=== PATIENT | female | born 1995 | race Caucasian/White ===

== ENCOUNTER 2016-12-01 12:47 | Emergency (ER) | payer OTHER ==
[~2016-12-01] VITALS: Ht 167.6 cm; Wt 65.2 kg
[2016-12-01 12:54] VITALS: Ht 167.6 cm; Wt 65.2 kg
[2016-12-01] MEDS ORDERED: SODIUM CHLORIDE 0.9% 1000ML 1,000 ML IV ONE (13:14)
[2016-12-01] MEDS ORDERED: SODIUM CHLORIDE 0.9% 1000ML 1,000 ML IV STA (13:14)
--- NOTE | 2016-12-01 13:16 | EMERGENCY ROOM VISIT NOTE ---
History Report prepared by Selene: Ashleigh Holly Under the Supervision of: Dr. Maxwell Cline M.D. First contact with patient: 13:00 Chief Complaint: ABDOMINAL PAIN Stated Complaint: ABD PAIN History of Present Illness The patient is a 21 year old female who presents to the Emergency Room with complaints of persistent lower abdominal pain that began several days ago. She currently rates her discomfort as a 4/10 in severity. The patient states that she noticed the pain in the left lower abdomen, but notes that it has radiated. She states that sitting in certain positions worsens his pain. The patient states that Advil has alleviated her pain slightly. She states that her pain today feels similar to gas pain, but states that it has been persistent. The patient denies any chance of and states that her last normal menstrual period was November 24. She denies any vaginal bleeding or discharge. The patient denies any active medical problems. She denies any recent travel or change in diet. The patient states that she went to Urgent Care today and was sent here for further evaluation. She denies any headache or urinary symptoms. Source of History: patient, friend Onset: several days ago Position: abdomen (lower) Symptom Intensity: 4/10 Timing: other (persistent) Modifying Factors (Worsening): other (sitting in certain positions) Modifying Factors (Relieving): other (Advil) Associated Symptoms: No headache, No urinary symptoms Review of Systems See HPI for pertinent positives & negatives. A total of 10 systems reviewed and were otherwise negative. Past Medical & Surgical Medical Problems: (1) No active medical problems Old medical records were reviewed. Nurse's notes were reviewed and I agree with. Family History No pertinent family history stated. Social History Smoking Status: Never Smoker Drug Use: none Marital Status: in relationship Occupation Status: [employer] student Current/Historical Medications No Active Prescriptions or Reported Meds Allergies Coded Allergies: Sulfa Antibiotics (Verified Allergy, Unknown, unknown, 04/27/14) Physical Exam Vital Signs Date Time Temp Pulse Resp B/P (MAP) Pulse Ox O2 Delivery O2 Flow Rate FiO2 12/01/16 15:46 36.7 66 15 117/78 97 12/01/16 15:45 66 15 117/78 97 Room Air 12/01/16 14:59 61 15 118/83 97 Room Air 12/01/16 12:54 36.7 68 15 112/76 97 Room Air Physical Exam General: Well developed well nourished, non-ill appearing slender young female, in no acute distress, breathing comfortably on room air. Normal speech HEENT: Normal cephalic atraumatic. Pupils are equal round and reactive to light. Sclera anicteric. Extraocular movements are intact. Oropharynx is pink with moist mucous membranes. No swelling of the mouth lips or tongue. Neck: Supple with a midline trachea. No meningeal signs or stiffness, no JVD or bruits. No Stridor. Chest: Clear to auscultation bilaterally. No wheezes or rhonchi. No increased work of breathing. Heart: regular rate and rhythm. Abdomen: Mildly diffusely tender, mostly in lower abdomen, in left greater than right. Worsens with movement. Soft, nondistended without rebound guarding or rigidity. Extremities: No cyanosis clubbing or edema. No calf tenderness or assymetry Spine/Back. Non tender to palpation. No CVA tenderness Skin: Good turgor without rashes. Neurologic exam: Cranial nerves two through 12 are intact. Motor and sensation are intact and symmetrical throughout. Medical Decision & Procedures ER Provider Diagnostic Interpretation: Radiology results as stated below per my review and radiologist interpretation: PELVIC ULTRASOUND, TRANSABDOMINAL HISTORY: lower abd pain L>R COMPARISON: None. FINDINGS: Uterus: Unremarkable. Endometrial stripe: 8 mm in thickness. Right ovary: Normal in size and demonstrates normal color flow. Left ovary: There is a 4.3 cm complex cyst with internal septations within the left ovary. This likely represents a hemorrhagic cyst. Normal color flow within the left ovary. Miscellaneous:Trace pelvic free fluid. IMPRESSION: 1. A 4.3 cm complex cyst within the left ovary which likely represents a hemorrhagic cyst. Follow-up pelvic ultrasound in 6-8 weeks can be performed to ensure resolution. 2. Normal uterus and right ovary. Electronically signed by: Ramiro Cox M.D. 12/01/2016 2:55 PM Dictated Date/Time: 12/01/2016 2:53 PM APPENDIX ULTRASOUND HISTORY: Lower abdominal pain. COMPARISON: None. FINDINGS: Transabdominal scanning of the right lower quadrant was performed. The appendix was not identified. There are no fluid collections or masses within the right lower quadrant. IMPRESSION: The appendix was not identified. Electronically signed by: Ramiro Cox M.D. 12/01/2016 2:50 PM Dictated Date/Time: 12/01/2016 2:49 PM Laboratory Results 12/01/16 13:28 Red Blood Count 4.73, Mean Corpuscular Volume 89.0, Mean Corpuscular Hemoglobin 30.4, Mean Corpuscular Hemoglobin Concent 34.2, Mean Platelet Volume 8.9, Neutrophils (%) (Auto) 64.4, Lymphocytes (%) (Auto) 29.0, Monocytes (%) (Auto) 5.9, Eosinophils (%) (Auto) 0.3, Basophils (%) (Auto) 0.3, Neutrophils # (Auto) 4.37, Lymphocytes # (Auto) 1.97, Monocytes # (Auto) 0.40, Eosinophils # (Auto) 0.02, Basophils # (Auto) 0.02 12/01/16 13:28 Test 12/01/16 00:00 12/01/16 13:28 Urine Color YELLOW Urine Appearance CLEAR (CLEAR) Urine pH 6.5 (4.5-7.5) Urine Specific [place] 1.010 (1.000-1.030) Urine Protein NEG (NEG) Urine Glucose (UA) NEG (NEG) Urine Ketones NEG (NEG) Urine Occult Blood NEG (NEG) Urine Nitrite NEG (NEG) Urine Bilirubin NEG (NEG) Urine Urobilinogen NEG (NEG) Urine Leukocyte Esterase NEG (NEG) White Blood Count 6.79 K/uL (4.8-10.8) Red Blood Count 4.73 M/uL (4.2-5.4) Hemoglobin 14.4 g/dL (12.0-16.0) Hematocrit 42.1 % (37-47) Mean Corpuscular Volume 89.0 fL (80-100) Mean Corpuscular Hemoglobin 30.4 pg (25-34) Mean Corpuscular Hemoglobin Concent 34.2 g/dl (32-36) Platelet Count 199 K/uL (130-400) Mean Platelet Volume 8.9 fL (7.4-10.4) Neutrophils (%) (Auto) 64.4 % Lymphocytes (%) (Auto) 29.0 % Monocytes (%) (Auto) 5.9 % Eosinophils (%) (Auto) 0.3 % Basophils (%) (Auto) 0.3 % Neutrophils # (Auto) 4.37 K/uL (1.4-6.5) Lymphocytes # (Auto) 1.97 K/uL (1.2-3.4) Monocytes # (Auto) 0.40 K/uL (0.11-0.59) Eosinophils # (Auto) 0.02 K/uL (0-0.5) Basophils # (Auto) 0.02 K/uL (0-0.2) RDW Standard Deviation 40.8 fL (36.4-46.3) RDW Coefficient of Variation 12.6 % (11.5-14.5) Immature Granulocyte % (Auto) 0.1 % Immature Granulocyte # (Auto) 0.01 K/uL (0.00-0.02) Anion Gap 9.0 mmol/L (3-11) Est Creatinine Clear Calc Drug Dose 99.1 ml/min Estimated GFR () 115.1 Estimated GFR (Non- 99.4 BUN/Creatinine Ratio 8.6 (10-20) Calcium Level 9.4 mg/dl (8.5-10.1) Total Bilirubin 1.0 mg/dl (0.2-1) Direct Bilirubin 0.3 mg/dl (0-0.2) Aspartate Amino Transf (AST/SGOT) 20 U/L (15-37) Alanine Aminotransferase (ALT/SGPT) 18 U/L (12-78) Alkaline Phosphatase 62 U/L (45-117) Total Protein 7.9 gm/dl (6.4-8.2) Albumin 4.6 gm/dl (3.4-5.0) Lipase 142 U/L (73-393) Human Chorionic Gonadotropin, Qual NEG (NEG) Laboratory studies as stated above per my review. Medications Administered Medications (Trade) Dose Ordered Sig/Harleen Route Start Time Stop Time Status Last Admin Dose Admin Sodium Chloride 1,000 ml @ 999 mls/hr Q1H1M STAT IV 12/01/16 13:14 12/01/16 14:14 DC 12/01/16 13:36 999 MLS/HR Sodium Chloride 1,000 ml @ 200 mls/hr Q5H ONCE IV 12/01/16 13:14 12/01/16 16:28 DC 12/01/16 14:55 200 MLS/HR ECG Indication: abdominal pain Rate (beats per minute): 59 Rhythm: sinus bradycardia Findings: no acute ischemic change, no ectopy Comparison ECG Date: no prior available ED Course 1302: Past medical records reviewed. The patient was evaluated in room A11B, and a complete history and physical examination were performed. 1314: Ordered Sodium Chloride 1000 ml @ 200 mls/hr IV, Sodium Chloride 1000 ml @ 999 mls/hr IV. 1410: I reevaluated the patient and she is preparing to go for an ultrasound. 1506: I reevaluated the patient and she is doing well. I discussed all the exam findings with her and I discussed the treatment plan. She verbalized complete understanding and agreement. She is ready to go home. Medical Decision Differentials include, but are not limited to; ovarian cyst, , UTI, diverticulitis, appendicitis. This patient comes in as described above. She was placed in room A 11. She is here for treatment and evaluation of left lower abdominal pain. She is tender but has no peritonitis. She looks well otherwise. She has minimal right lower quadrant tenderness. IV access established and blood work was obtained ultrasounds and urine was obtained. I did order a CT scan in the event that the ultrasounds were negative and unrevealing. test serum was negative. She's no elevation of the white count or fever to suggest infection. She's had no significant anemia. She's has no acute electrode or metabolic abnormalities and has normal kidney function. She has nothing to suggest UTI or kidney stone. Appendix was not visualized on ultrasound. Her pelvic ultrasound revealed a hemorrhagic cyst in her left ovary and there is only small amount of free fluid. I think this is most likely causing her symptoms and I do not need to subject her to radiation. She should continue to use an anti-inflammatory like ibuprofen 400 mg every 6 hours. She was happy with the plan and will be discharged home. Impression Primary Impression: Hemorrhagic ovarian cyst Additional Impression: Left lower quadrant abdominal tenderness Scribe Attestation The scribe's documentation has been prepared under my direction and personally reviewed by me in its entirety. I confirm that the note above accurately reflects all work, treatment, procedures, and medical decision making performed by me. Departure Information Dispostion Home / Self-Care Prescriptions No Active Prescriptions or Reported Meds Forms HOME CARE DOCUMENTATION FORM, IMPORTANT VISIT INFORMATION Patient Instructions My [facility] Additional Instructions Rest. Drink plenty of fluids. Use ibuprofen 400 mg every 6 hours, take with food Return if: Increasing pain, worsening of symptoms, fever or chills, any new problems or concerns. Follow up with the student health clinic early next week for recheck or return here over the weekend if symptoms worsen Problem Qualifiers
[2016-12-01 13:40] LABS: BASO % 0.3 %; BASO ABS # 0.02 K/uL (0-0.2); COMPLETE YES; EOS % 0.3 %; HEMATOCRIT 42.1 % (37-47); IG% 0.1 %; LYMPH ABS # 1.97 K/uL (1.2-3.4); MEAN CORPUSCULAR HEMOGLOBIN 30.4 pg (25-34); MEAN CORPUSCULAR HGB CONC 34.2 g/dl (32-36); MEAN PLATELET VOLUME 8.9 fL (7.4-10.4); MONO % 5.9 %; NEUT % 64.4 %; PLATELET COUNT 199 K/uL (130-400); RED BLOOD COUNT 4.73 M/uL (4.2-5.4); WHITE BLOOD COUNT 6.79 K/uL (4.8-10.8)
[2016-12-01 13:58] LABS: BUN/CREATININE RATIO 8.6 (10-20); CALCIUM 9.4 mg/dl (8.5-10.1); CREATININE 0.84 mg/dl (0.60-1.20); POTASSIUM 3.7 mmol/L (3.5-5.1)
[2016-12-01 14:04] LABS: PREG INTERNAL NEGATIVE QC NEG CLEAR BACKGROUND; PREG INTERNAL POSITIVE QC POS CONTROL LINE
[2016-12-01 14:21] LABS: URINE APPEARANCE CLEAR (CLEAR); URINE BILIRUBIN NEG (NEG); URINE COLOR YELLOW; URINE NITRITE NEG (NEG); URINE PH 6.5 (4.5-7.5); UROBILINOGEN NEG (NEG)
[2016-12-01 14:39] LABS: MANUAL MICROSCOPIC REQUIRED? NO; REVIEW REQ? NO
--- NOTE | 2016-12-01 14:52 | DIAGNOSTIC IMAGING REPORT ---
APPENDIX ULTRASOUND HISTORY: Lower abdominal pain. COMPARISON: None. FINDINGS: Transabdominal scanning of the right lower quadrant was performed. The appendix was not identified. There are no fluid collections or masses within the right lower quadrant. IMPRESSION: The appendix was not identified. Electronically signed by: Ramiro Cox M.D. 12/01/2016 2:50 PM Dictated Date/Time: 12/01/2016 2:49 PM
--- NOTE | 2016-12-01 14:57 | DIAGNOSTIC IMAGING REPORT ---
PELVIC ULTRASOUND, TRANSABDOMINAL HISTORY: lower abd pain L>R COMPARISON: None. FINDINGS: Uterus: Unremarkable. Endometrial stripe: 8 mm in thickness. Right ovary: Normal in size and demonstrates normal color flow. Left ovary: There is a 4.3 cm complex cyst with internal septations within the left ovary. This likely represents a hemorrhagic cyst. Normal color flow within the left ovary. Miscellaneous:Trace pelvic free fluid. IMPRESSION: 1. A 4.3 cm complex cyst within the left ovary which likely represents a hemorrhagic cyst. Follow-up pelvic ultrasound in 6-8 weeks can be performed to ensure resolution. 2. Normal uterus and right ovary. Electronically signed by: Ramiro Cox M.D. 12/01/2016 2:55 PM Dictated Date/Time: 12/01/2016 2:53 PM
[2016-12-01] MEDS ORDERED: OPTIRAY 320 IV PRN (15:15)
[2016-12-01 15:46] VITALS: BP 117/78; PULSE 66; TEMP 36.7; O2SAT 97
== END 2016-12-01 15:47 | disposition home or self-care (01) ==
LOC: C.EDB 12:49 → C.EDA 15:47
DX: N83.202 Unspecified ovarian cyst, left side (principal); R10.814 Left lower quadrant abdominal tenderness

== ENCOUNTER 2024-09-25 07:42 | Inpatient (IN) ==
[2024-09-25] MEDS ORDERED: OXYTOCIN 30 UNITS/NSS 30 UNITS/500 ML BAG IV PRN ×2 (08:25)
[2024-09-25] MEDS ORDERED: LIDOCAINE 1% LOCAL 20 ML VIAL INFIL PRN (08:25)
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
[2024-09-25 09:17] LABS: Hematocrit (blood only) 37.1 % (37.0-47.0); Hemoglobin 13.2 g/dl (12.0-16.0); Mean Corpuscular Hemoglobin 30.8 pg (25.0-34.0); Mean Corpuscular Hgb Conc 35.6 g/dL (32.0-36.0); Mean Corpuscular Volume 86.7 fL (80.0-100.0); Mean Platelet Volume 9.9 fL (9.4-12.4); Platelet Count 193 K/uL (130-400); RDW Coefficient of Variation 13.2 % (11.5-14.5); RDW Standard Deviation 41.5 fL (36.4-46.3); Red Blood Count 4.28 M/uL (4.20-5.40); White Blood Count 11.71 K/ul (4.8-10.8)
[2024-09-25] MEDS ORDERED: fentaNYL citrate PF 100 MCG/2 ML VIAL EPI PRN (13:53)
[2024-09-25] MEDS ORDERED: LIDOCAINE 2% MPF LOCAL 5 ML VIAL EPI PRN (13:53)
[2024-09-25] MEDS ORDERED: ONDANSETRON INJ 2 MG/ML 2 ML VIAL IV PRN (13:53)
[2024-09-25] MEDS ORDERED: BUPIVACAINE 0.25% PF 30 ML VIAL EPI PRN (13:53)
[2024-09-25] MEDS ORDERED: ROPIVACAINE 0.5% PF 5 MG/ML 20 ML VIAL EPI PRN (13:53)
[2024-09-25] MEDS ORDERED: ePHEDrine sulfate 50 MG/ML AMP IV PRN (13:53)
[2024-09-25] MEDS ORDERED: fentANYL 2 MCG/ML BUPIVacaine 0.125%-NSS 100ML BAG EPI PRN (13:53)
[2024-09-25] MEDS ORDERED: NALOXONE HCL 1 MG in SODIUM CHLORIDE 0.9% 1,000 ML IV PRN (13:53)
[2024-09-25] MEDS ORDERED: SODIUM CHLORIDE 0.9% PF INJ 10 ML VIAL EPI PRN (13:53)
[2024-09-25] MEDS ORDERED: diphenhydrAMINE 50 MG/ML VIAL IV PRN (13:53)
[2024-09-25] MEDS ORDERED: NALOXONE HCL 0.4 MG/1 ML VIAL/CARP IV PRN (13:53)
[2024-09-25] MEDS ORDERED: NALBUPHINE HCL INJ 10 MG/ML AMP IV PRN (13:53)
[2024-09-25] MEDS: LACTATED RINGER'S 1,000 ML IV PRN (13:54)
--- NOTE | 2024-09-25 13:55 | Anesthesiology Consultation ---
Date of Service September 25, 2024 Assessment & Plan (1) Encounter for pre-operative examination: Chart Review Chart Review: Patient NOT seen in Pre Admission Testing and Acceptable Risk for Labor Epidural Consults Requested none History Height/Weight Height: 5 ft 6 in Weight: 93.44 kg Allergies Allergy/AdvReac Type Severity Reaction Status Date / Time Sulfa (Sulfonamide Allergy Unknown unknown Verified 09/24/24 14:10 Antibiotics) Medications Home Medications Medication Instructions Recorded Confirmed Last Taken [id number] oil PO 02/22/24 09/24/24 09/24/24 [ Gummy] acetone (urine) test (Ketone Urine #50 ea 08/13/24 09/24/24 Unknown Test strips) blood-glucose meter (OneTouch #1 ea 08/13/24 09/24/24 Unknown Verio Reflect Meter) lancets 33 gauge (OneTouch Delica #150 ea 08/13/24 09/24/24 Unknown Plus Lancet) blood sugar diagnostic (OneTouch #400 ea 09/03/24 09/24/24 Unknown Verio test strips) ferrous sulfate 325 mg (65 mg 325 mg PO DAILY 09/25/24 09/25/24 09/24/24 iron) tablet (iron) Active Medications Generic Name Dose Route Start Last Admin Trade Name Freq PRN Reason Stop Dose Admin Lactated Ringer's 1,000 mls @ 125 mls/hr 09/25/24 08:25 09/25/24 13:54 Lr IV 09/26/24 08:24 999 mls/hr .Q8H PRN Administration L&D Protocol Protocol Past Medical History Medical History (Updated 09/25/24 @ 13:55 by Ubaldo Salcedo MD) Encounter for pre-operative examination Chicken pox Cyst on ear ADD (attention deficit disorder) Anxiety Closed head injury Exercise / Class Metabolic Activity II 4-5 Yardwork/Stairs/Walk up hill Past Family History Family History Father Alcohol abuse Spindle cell carcinoma Aunt Breast cancer Sister Gestational diabetes Denies family history of Colon cancer Ovarian cancer Prostate cancer Myocardial infarction Past Surgical History Surgical History History of wisdom tooth extraction Past Anesthesia History No Hx of Anesthesia Complications and No Family Hx of Anesthesia Complications Social History Smoking Status: Never smoker Do You Dip or Chew Tobacco: No Hx Alcohol Use: No Hx Substance Use: No substance use type: marijuana Physical Exam Vital Signs Last Vital Signs Temp 36.8 C 09/25/24 13:57 Pulse 70 09/25/24 14:22 Resp 20 09/25/24 14:18 BP 155/87 H 09/25/24 14:22 Pulse Ox 99 09/25/24 14:21 Testing Laboratory Results 09/25/24 08:57 09/25/24 09/25/24 09/25/24 14:06 12:19 10:31 POC Glucose 89 75 77 09/25/24 08:22 POC Glucose 89
[2024-09-25] MEDS: fentaNYL citrate PF 100 MCG/2 ML VIAL ONE (14:26)
[2024-09-25] MEDS: LIDOCAINE 2%/EPINEPHRINE 1:200,000 20 ML PF ONE (14:26)
[2024-09-25] MEDS: fentANYL 2 MCG/ML BUPIVacaine 0.125%-NSS 100ML BAG ONE (14:27)
[2024-09-25] MEDS: SODIUM CHLORIDE 0.9% PF INJ 10 ML VIAL ONE (14:34)
[2024-09-25] MEDS: ePHEDrine sulfate 50 MG/ML AMP ONE (14:34)
[2024-09-25] MEDS: BUPIVACAINE 0.25% PF 30 ML VIAL ONE (14:34)
[2024-09-25] MEDS: LIDOCAINE 2%/EPINEPHRINE 1:200,000 20 ML PF EPI STA (15:07)
[2024-09-25] MEDS: BUPIVACAINE 0.25% PF 30 ML VIAL EPI STA (15:07)
[2024-09-25] MEDS: SODIUM CHLORIDE 0.9% PF INJ 10 ML VIAL EPI STA (15:07)
[2024-09-25] MEDS: fentaNYL citrate PF 100 MCG/2 ML VIAL EPI STA (15:07)
[2024-09-25] MEDS: OXYTOCIN 30 UNITS/NSS 30 UNITS/500 ML BAG IV PRN (17:01)
--- NOTE | 2024-09-25 17:24 | Delivery Summary ---
Vaginal Delivery Summary Date of Service September 25, 2024 Vaginal Delivery Summary DIAGNOSES: 1. Terrell intrauterine at 39w1d gestation. 2. Induction of Labor for Gestational Diabetes on Insulin. 3. Group B Streptococcus Neg. PROCEDURE: Spontaneous vaginal delivery and repair of second degree laceration. SURGEON: Lula Danielson MD. SHOE RECONDITIONER: None. ESTIMATED BLOOD LOSS: 100 mL. COMPLICATIONS: None. PLACENTA: Spontaneous and intact with a 3-vessel cord. DISPOSITION: Stable to labor and delivery. DESCRIPTION: The patient pushed well and brought the head to in DOA position. The infant's head was allowed to deliver with contraction force and no further active pushing, with the perineum protected during this time. There was no nuchal cord. The right shoulder was anterior. The shoulders and body delivered without any difficulty, and the was placed on the maternal abdomen. It was vigorous and moving all extremities, and making respiratory efforts. The cord was doubly clamped by the MD and then cut by the FOB. The placenta delivered spontaneously and was noted to be intact and with a 3VC. The cervix, vagina and perineum were examined and were found to have a second degree laceration which was repaired with vicryl suture in the usual manner, including a crown stitch to rebuild the perineal body. The fundus was firm and lochia minimal immediately after delivery. [facility] Vaginal Delivery Charge Vaginal Delivery Codes: 94290 global code for the antepartum, delivery, and post-
[2024-09-25] MEDS ORDERED: ACETAMINOPHEN 325 MG TAB PO PRN (17:27)
[2024-09-25] MEDS ORDERED: oxyCODONE/ACETAMINOPHEN 5mg/325mg TAB PO PRN (17:27)
[2024-09-25] MEDS ORDERED: HYDROCORTISONE ACETATE 25 MG SUPP PR PRN (17:27)
[2024-09-25] MEDS ORDERED: bisacodyL 10 MG SUPP PR PRN (17:27)
[2024-09-25] MEDS: DIPHTHER/TETAN/PERTUS Vaccine (Tdap, Adol/Adult) 0.5mL IM ONE (17:46)
[2024-09-25] MEDS: BENZOCAINE 20% SPRY 85 APPLN/85 GM CAN EXT PRN (18:43)
--- NOTE | 2024-09-25 19:01 | Anesthesia Procedure Note ---
Date of Service September 25, 2024 Anesthesia Post Epidural Note Vital Signs Vital Signs: Temp Pulse Resp BP Pulse Ox 98.2 F 111 H 18 141/77 H 94 09/25/24 13:57 09/25/24 18:48 09/25/24 18:10 09/25/24 18:48 09/25/24 17:07 Pain Intensity Bilateral Abdomen: Pain Intensity: 0 Notes Mental Status: alert / awake / arousable and participated in evaluation Nausea / Vomiting: adequately controlled Pain: adequately controlled Airway Patency, RR, SpO2: stable & adequate BP & HR: stable & adequate Hydration State: stable & adequate Neuraxial Anesthesia: was administered and sensory block is resolving Anesthetic Complications: no major complications apparent and Pt Satisfied with anesthetic care Epidural: Removed without complications and With tip intact
[2024-09-25] MEDS: DOCUSATE SODIUM 100 MG CAP PO SCH (21:18)
[2024-09-25] MEDS: IBUPROFEN 600 MG TAB PO PRN (21:18)
--- NOTE | 2024-09-26 06:26 | Obstetrical Progress Note ---
Date of Service <Giovanni Marks MD - Last Filed: 09/26/24 07:43> September 26, 2024 Assessment & Plan <Giovanni Marks MD - Last Filed: 09/26/24 07:43> (1) care and examination: PPD1 s/p at 39+ wga: Stable. Rh neg, gbs neg, ri, vitals & H/H wnl Continue routine care, OOB and ambulation, diet as tolerated Plan for DC at 24h , if cleared by Peds <Lula Danielson MD - Last Filed: 09/26/24 07:47> (1) care and examination: Subjective <Giovanni Marks MD - Last Filed: 09/26/24 07:43> Patient is a 28yo who is PPD#1 following at 39+ weeks. Abd pain/cramping - mild, well managed on analgesics Voiding w/o issue Tolerating meals Ambulating normally +passing gas Lochia - minimal, diminishing Planning to breastfeed. Constitutional: no fever, no chills or no sweats Respiratory: no dyspnea Cardiovascular: no chest pain, no palpitations or no calf pain Breast: no breast pain Gastrointestinal: no nausea or no vomiting Genitourinary (female): no dysuria Neurologic: no headache(s) no changes in vision, no headaches Physical Exam <Giovanni Marks MD - Last Filed: 09/26/24 07:43> General: Alert, oriented. No acute distress. Cardiac: Regular rate and rhythm, no murmurs, rubs, or gallops. Respiratory: Clear to auscultation bilaterally. No increased work of breathing. Symmetrical chest rise. No respiratory distress. Abdomen: Soft, nontender, nondistended. Bowel sounds present. Uterus: Uterine fundus firm, nontender, palpable at the level of the umbilicus. Lower extremities: No lower extremity edema or swelling. No deep calf pain. Results & Data <Giovanni Marks MD - Last Filed: 09/26/24 07:43> Vital Signs (Past 12 Hours) Vital Signs Temp Pulse Pulse Resp BP BP Pulse Ox 09/26/24 03:30 36.8 C 72 16 114/75 99 09/26/24 00:50 36.6 C 80 18 144/82 H 98 09/25/24 19:50 36.8 C 104 H 18 118/80 97 09/25/24 19:15 36.9 C 16 09/25/24 19:03 88 117/73 09/25/24 18:48 111 H 141/77 H 09/25/24 18:33 80 117/62 O2 Del Method 09/26/24 03:30 Room Air 09/26/24 00:50 Room Air 09/25/24 19:50 Room Air 09/25/24 19:15 09/25/24 19:03 09/25/24 18:48 09/25/24 18:33 Laboratory Results 09/26/24 05:59 Supervising Physician <Lula Danielson MD - Last Filed: 09/26/24 07:47> Co-Signing Physician Notes Resident Physician Supervision Note: I interviewed and examined the patient. Discussed with Dr. Posada and agree with findings and plan as documented in the note. Any exceptions or clarifications are listed here: [ ] Documented By: Lula Danielson MD, FACOG Resident Activity Tracking <Giovanni Marks MD - Last Filed: 09/26/24 07:43> Resident Involvement: Resident Care Provided Care Provided: Adult Hospital Medicine and OB Delivery
[2024-09-26 06:31] LABS: Hematocrit (blood only) 31.8 % (37.0-47.0); Hemoglobin 11.1 g/dl (12.0-16.0); Mean Corpuscular Hemoglobin 31.2 pg (25.0-34.0); Mean Corpuscular Hgb Conc 34.9 g/dL (32.0-36.0); Mean Corpuscular Volume 89.3 fL (80.0-100.0); Platelet Count 177 K/uL (130-400); RDW Coefficient of Variation 13.2 % (11.5-14.5); RDW Standard Deviation 43.7 fL (36.4-46.3); Red Blood Count 3.56 M/uL (4.20-5.40); White Blood Count 12.55 K/ul (4.8-10.8)
[2024-09-26] MEDS: PRENATAL VITAMIN 1 TAB PO SCH (08:06)
[2024-09-26] MEDS: bisacodyL 5 MG TABEC PO SCH (20:02)
[2024-09-27 00:08] VITALS: TEMP 97.9
--- NOTE | 2024-09-27 06:17 | Obstetrical Progress Note ---
Date of Service <Giovanni Marks MD - Last Filed: 09/27/24 07:08> September 27, 2024 Assessment & Plan <Giovanni Marks MD - Last Filed: 09/27/24 07:08> (1) care and examination: PPD2 s/p at 39+ wga: Stable. Rh neg, gbs neg, ri, vitals & H/H noted Continue routine care, OOB and ambulation, diet as tolerated Plan for DC later today <Francheska Siddiqi MD, FACOG - Last Filed: 09/27/24 07:11> (1) care and examination: Subjective <Giovanni Marks MD - Last Filed: 09/27/24 07:08> Patient is a 28yo who is PPD#2 following at 39+ weeks. Abd pain/cramping - mild, well managed on analgesics Voiding w/o issue Tolerating meals Ambulating normally +passing gas Lochia - minimal, diminishing Planning to breastfeed. Constitutional: no fever, no chills or no sweats Respiratory: no dyspnea Cardiovascular: no chest pain, no palpitations or no calf pain Breast: no breast pain Gastrointestinal: no nausea or no vomiting Genitourinary (female): no dysuria Neurologic: no headache(s) no changes in vision, no headaches Physical Exam <Giovanni Marks MD - Last Filed: 09/27/24 07:08> General: Alert, oriented. No acute distress. Cardiac: Regular rate and rhythm, no murmurs, rubs, or gallops. Respiratory: Clear to auscultation bilaterally. No increased work of breathing. Symmetrical chest rise. No respiratory distress. Abdomen: Soft, nontender, nondistended. Bowel sounds present. Uterus: Uterine fundus firm, nontender, palpable 2cm below the umbilicus. Lower extremities: No lower extremity edema or swelling. No deep calf pain. Results & Data <Giovanni Marks MD - Last Filed: 09/27/24 07:08> Vital Signs (Past 12 Hours) Vital Signs Temp Pulse Resp BP O2 Del Method 09/27/24 00:00 36.6 C 74 16 118/74 Room Air 09/26/24 20:00 36.5 C 74 16 136/84 Room Air Laboratory Results 09/27/24 06:02 Supervising Physician <Francheska Siddiqi MD, FACOG - Last Filed: 09/27/24 07:11> Co-Signing Physician Notes Resident Physician Supervision Note: I interviewed and examined the patient. Discussed with Dr. Marks and agree with findings and plan as documented in the note. Any exceptions or clarifications are listed here: Doing well. Glad she stayed overnight. Ready for d/c today. instructions given. Documented By: Francheska Siddiqi MD, FACOG Resident Activity Tracking <Giovanni Marks MD - Last Filed: 09/27/24 07:08> Resident Involvement: Resident Care Provided Care Provided: Adult Hospital Medicine and OB Delivery
[2024-09-27 06:26] LABS: Hematocrit (blood only) 32.8 % (37.0-47.0); Hemoglobin 11.2 g/dl (12.0-16.0)
[2024-09-27 09:39] VITALS: BP 120/77; PULSE 81; RESP 18; O2SAT 96
== END 2024-09-27 10:59 | disposition home or self-care (01) | DRG 807 ==
LOC: 4S1 07:42 → 4E2 20:01
DX: Z3A.39 39 weeks gestation of pregnancy; O70.1 Second degree perineal laceration during delivery; Z37.0 Single live birth; O24.414 Gestational diabetes mellitus in pregnancy, insulin controlled